=== PATIENT | female | born 1990 | race Caucasian/White ===

== ENCOUNTER 2019-02-27 07:51 | Inpatient (IN) | payer BC ==
[~2019-02-27 07:51] MED LIST: Buffered Lidocaine 1% SYRIN* 1 ML/SYRINGE INTRADERM ONE; Famotidine IV* 10 MG/ML 2 ML (20 mg) IV ONE
[2019-02-27] MEDS: Lactated Ringers 1000 ML Bag* 1,000 ML IV SCH ×2 (08:20→09:34)
[2019-02-27] MEDS ORDERED: fentaNYL* 50 MCG/ML 2 ML VIAL (100 MCG VIAL) ONE (08:25)
[2019-02-27] MEDS ORDERED: Morphine PF AMP (0.5MG/ML)* 5 MG/10 ML AMP ONE (08:25)
[2019-02-27] MEDS ORDERED: Midazolam* 1 MG/ML 5 ML VIAL (5 MG) ONE (08:25)
[2019-02-27] MEDS ORDERED: KETAMINE HCL* 50 MG/ML 10 ML VIAL ONE (08:25)
[2019-02-27] MEDS ORDERED: ceFOXitin 2 GM IVPREMIX* 2 GM/50 ML BAG ONE (09:40)
[2019-02-27] MEDS ORDERED: Carboprost Tromethamine* 250 MCG INJ ONE (10:39)
[2019-02-27] MEDS ORDERED: DiMENhydriNATE IV* 50 MG/ML VIAL IV PUSH PRN (11:00)
[2019-02-27] MEDS ORDERED: Scopolamine 1.5 mg* PATCH TRANSDERM PRN (11:00)
[2019-02-27] MEDS ORDERED: Naloxone* 2 MG in NS 0.9% 250 ML* 250 ML IV PRN (11:00)
[2019-02-27] MEDS ORDERED: PROCHLORPERAZINE INJ 5 MG/ML 2 ML VIAL IV PRN (11:00)
[2019-02-27] MEDS ORDERED: Ondansetron INJ* 2 MG/ML VIAL IV PRN (11:00)
[2019-02-27] MEDS ORDERED: Nalbuphine* 10 MG/ML 1 ML VIAL IV PRN (11:00)
[2019-02-27] MEDS ORDERED: Naloxone* 0.4 MG/ML 1 ML VIAL IV PRN ×2 (11:00→11:03)
[2019-02-27] MEDS ORDERED: fentaNYL* 50 MCG/ML 2 ML VIAL (100 MCG VIAL) IV PRN (11:03)
[2019-02-27] MEDS ORDERED: EPHEDrine (Pressors)* 50 MG/ML VIAL ONE (11:11)
[2019-02-27] MEDS ORDERED: Scopolamine 1.5 mg* PATCH ONE (11:11)
[2019-02-27] MEDS ORDERED: Ketorolac INJ* 30 MG/ML 1 ML VIAL ONE (11:11)
[2019-02-27] MEDS ORDERED: OXYTOCIN* 10 UNITS/ML 1 ML VIAL ONE (11:11)
[2019-02-27] MEDS ORDERED: Dexamethasone IV* 4 MG/ML 1 ML (4 MG) ONE (11:11)
[2019-02-27] MEDS ORDERED: Ondansetron INJ* 2 MG/ML VIAL ONE (11:11)
[2019-02-27] MEDS ORDERED: Witch Hazel PAD* JAR TOPICAL PRN (12:01)
[2019-02-27] MEDS ORDERED: Dibucaine 1% 28.35 GM TUBE PR PRN (12:01)
[2019-02-27] MEDS ORDERED: Glycerin ADULT SUPP PR PRN (12:01)
[2019-02-27] MEDS: Simethicone TAB* 80 MG TAB.CHEW PO SCH ×3 (12:30→20:16)
[2019-02-27] MEDS ORDERED: Oxytocin in LR* 20 UNITS/1,000 ML BAG IVPB SCH (13:00)
[2019-02-27] MEDS ORDERED: Lactated Ringers 1000 ML Bag* 1,000 ML IV SCH (13:00)
[2019-02-27] MEDS: Docusate CAP* 100 MG PO SCH ×2 (14:00→20:16)
[2019-02-27] MEDS: Ketorolac INJ* 30 MG/ML 1 ML VIAL IV PRN (18:01)
--- NOTE | 2019-02-27 22:20 | OP ---
DATE OF OPERATION: 02/27/19 - ROOM #114 DATE OF : 88 SURGEON: Ashley Velásquez MD FOOD QUALITY TESTER: Lai Mark MD ANESTHESIOLOGIST: Dr. Diehl. ANESTHESIA: Spinal. PRE-OP DIAGNOSIS: Intrauterine 37 and 4/7th weeks, placenta previa, primary section. POST-OP DIAGNOSIS: Intrauterine 37 and 4/7th weeks, placenta previa, primary section, delivered. OPERATIVE PROCEDURE: Primary low transverse section. ESTIMATED BLOOD LOSS: 600 cc. URINE OUTPUT: 300 cc of clear yellow urine. FLUIDS: 2800 cc of crystalloid. FINDINGS: Revealed a vertex male infant, Apgars 8 at 1 minute, 9 at 5 minutes, 6 pounds 7 ounces, no nuchal cord, no meconium. Normal-appearing tubes and ovaries. Uterine cavity without evidence of masses or synechiae. No evidence of retained placental tissue on membranes. Normal-appearing placenta. Three- vessel cord, manual. COMPLICATIONS: None apparent. DISPOSITION: Stable to recovery room. DESCRIPTION OF PROCEDURE: The patient was placed in dorsal lithotomy position. The abdomen was prepped and draped in a sterile standard fashion. Anesthesia was tested to appropriate level. The patient was identified with universal protocol. An incision was made 2 fingerbreadths above the pubic symphysis. This was carried down through the fascia. The fascia was scored in the midline , extended laterally and superiorly using Forrester scissors and fascia was sharply and bluntly superiorly and inferiorly using Forrester scissors. Peritoneum was then entered bluntly. Peritoneal incision was extended bluntly. Bladder blade was inserted. The lower uterine segment was identified. Tented up with an Allis. The incision was made down to the membranes. Clear fluid was noted. The incision was extended laterally and superiorly using bandage scissors. The was found to be LOT. Delivered. No nuchal cord, no meconium. Anterior posterior shoulder delivered. Cord was allowed to pulse. The cord was then clamped after 60 seconds and cut and infant was handed off to waiting grinder chipper. Appropriate cord bloods were obtained. The placenta was then manually extracted, noted to have 3-vessel cord intact. The uterus was exteriorized, wrapped in one moist laparotomy sponge. Tubes and ovaries were noted to have a normal appearance. Uterine cavity was normal without evidence of retained membranes or placental tissue. The uterine incision itself was reapproximated using 0 Vicryl x2 in a running locked and imbricated fashion. Uterus was returned intraabdominally. Colic gutters were lavaged. Hemostasis was assured at the hysterotomy site. The peritoneum was clamped with Kellys. The peritoneum was then reapproximated using 3-0 Vicryl in a running fashion. Subfascial area was visualized and noted to be hemostatic. Fascia itself was reapproximated using 0 Vicryl x2 in a running fashion. Subcuticular tissue was lavaged. Hemostasis was assured with Bovie coagulation and the skin was then reapproximated using 4-0 Monocryl in a subcuticular fashion. Mastisol and Steris were applied. All sponge, instrument, and blade counts were correct throughout the case. The patient tolerated the procedure well and went to recovery room in stable condition. [id number] #: [id number] PIA
[2019-02-28] MEDS: Ketorolac INJ* 30 MG/ML 1 ML VIAL IV PRN ×2 (00:15→06:23)
[2019-02-28] MEDS ORDERED: oxyCODONE/Acetamin 5/325 MG* TAB PO PRN ×2 (01:00)
[2019-02-28] MEDS: Acetaminophen TAB* 325 MG PO PRN ×2 (06:23→17:39)
[2019-02-28] MEDS: Simethicone TAB* 80 MG TAB.CHEW PO SCH ×4 (08:07→20:23)
[2019-02-28] MEDS: Docusate CAP* 100 MG PO SCH ×3 (08:07→20:23)
[2019-02-28 08:52] LABS: ABS Basophils 0.1 10^3/ul (0-0.2); ABS Eosinophils 0.1 10^3/ul (0-0.6); ABS Lymphocytes 2.5 10^3/ul (1.0-4.8); ABS Neutrophils 10.6 10^3/ul (1.5-7.7); ABS Nucleated RBC 0 10^3/ul; Eosinophil % 0.5 %; Hematocrit 33 % (33-41); Hemoglobin 11.2 g/dL (12.0-16.0); Lymphocyte % 17.7 %; Mean Corpuscular HGB Conc 34 g/dL (31-36); Mean Corpuscular Hemoglobin 30 pg (27-31); Mean Corpuscular Volume 89 fL (80-97); Mean Platelet Volume 7.6 fL (7.4-10.4); Nucleated Red Blood Cells % 0.1; Platelet Count 199 10^3/uL (150-450); Red Blood Count 3.75 10^6 /uL (3.70-4.87); Red Cell Distribution Width 13 % (10.5-15); White Blood Count 14.3 10^3/uL (3.5-10.8)
[2019-02-28] MEDS ORDERED: Ferrous Gluconate TAB* 324 MG TAB PO SCH (09:00)
[2019-02-28] MEDS: Ibuprofen TAB* 600 MG PO PRN ×2 (12:41→20:23)
[2019-03-01 08:44] VITALS: BP 101/74
[2019-03-01] MEDS: Docusate CAP* 100 MG PO SCH ×2 (08:44→14:09)
[2019-03-01] MEDS: Simethicone TAB* 80 MG TAB.CHEW PO SCH ×2 (08:45→12:53)
[2019-03-01] MEDS: oxyCODONE/Acetamin 5/325 MG* TAB PO PRN ×2 (08:45→12:53)
[2019-03-01] MEDS: Ibuprofen TAB* 600 MG PO PRN ×2 (08:45→14:09)
[2019-03-02] MEDS ORDERED: Scopolamine PATCH Remove* 1 NOTE MISC PATCH OFF PRN (11:01)
== END 2019-03-01 15:00 | disposition home or self-care (01) | DRG 540 ==
LOC: MCHOB 07:51
PROVIDERS: ADMIT Obstetrics & Gynecology; ATTEND Obstetrics & Gynecology
PROC: 4A1HXCZ Monitoring of Products of Conception, Cardiac Rate, External Approach (ICD-10-PCS; 2019-02-27)
PROC: 10D00Z1 Extraction of Products of Conception, Low, Open Approach (ICD-10-PCS; principal; 2019-02-27 09:45)
DX: O44.03 Complete placenta previa NOS or without hemorrhage, third trimester (principal); Z3A.37 37 weeks gestation of pregnancy; Z37.0 Single live birth; Z88.0 Allergy status to penicillin
CPT/HCPCS: 36415; 85025; A9270-GY; J0694; J1100; J1885; J2250; J2405; J2590; J3010

== ENCOUNTER 2023-01-24 05:28 | Inpatient (IN) ==
[2023-01-24] MEDS ORDERED: ceFAZolin 2 GM/50 ML BAG IV ONE (06:00)
[2023-01-24 06:16] LABS: ABS Eosinophils 0.1 10^3/ul (0-0.6); ABS Monocytes 0.9 10^3/ul (0-0.8); ABS Neutrophils 5.5 10^3/ul (1.5-7.7); Eosinophil % 1.4 %; Hematocrit 36 % (35-47); Hemoglobin 12.4 g/dL (12.0-16.0); Lymphocyte % 23.3 %; Mean Corpuscular HGB Conc 35 g/dL (31-36); Mean Corpuscular Hemoglobin 31 pg (27-31); Mean Corpuscular Volume 87 fL (80-97); Mean Platelet Volume 7.4 fL (7.4-10.4); Platelet Count 216 10^3/uL (150-450); Red Blood Count 4.07 10^6 /uL (3.70-4.87); Red Cell Distribution Width 13 % (10-15); White Blood Count 8.6 10^3/uL (3.5-10.8)
[2023-01-24] MEDS ORDERED: Lactated Ringers 1000 ml BAG 1,000 ML IV SCH ×2 (07:00→10:00)
[2023-01-24] MEDS ORDERED: Oxytocin 10 UNITS/ML 1 ML VIAL ONE (07:37)
[2023-01-24] MEDS ORDERED: Ondansetron 4 mg VIAL 2 MG/ML 2 ml VIAL ONE (07:37)
[2023-01-24] MEDS ORDERED: Morphine PF AMP (0.5MG/ML) 5 MG/10 ML AMP ONE (07:38)
[2023-01-24] MEDS ORDERED: Phenylephrine 40 mcg/mL 10mL (400mcg) SYRINGE ONE ×2 (07:38→09:16)
[2023-01-24] MEDS ORDERED: Metoclopramide 5 MG/ML VIAL (10 mg) IV PRN (08:47)
[2023-01-24] MEDS ORDERED: Naloxone 0.4 mg VIAL 0.4 mg/ml 1 ml VIAL IV PUSH PRN (08:47)
[2023-01-24] MEDS ORDERED: Acetaminophen IV 1 GM/100ML 1,000 MG/100 ML BAG IV PRN (08:47)
[2023-01-24] MEDS ORDERED: Ondansetron 4 mg VIAL 2 MG/ML 2 ml VIAL IV PRN (08:47)
[2023-01-24] MEDS ORDERED: Acetaminophen IV 1 GM/100ML 1,000 MG/100 ML BAG IV ONE (08:51)
[2023-01-24] MEDS ORDERED: Glycerin ADULT 2.4 gm SUPP PR PRN (09:45)
[2023-01-24] MEDS ORDERED: Witch Hazel PAD JAR TOPICAL PRN (09:45)
[2023-01-24] MEDS ORDERED: Dibucaine 1% OINT 28.35 GM TUBE PR PRN (09:45)
[2023-01-24 11:31] LABS: Urine Appearance Clear; Urine Bilirubin Negative (Negative); Urine Blood 1+ (Negative); Urine Color Straw; Urine Glucose Negative (Negative); Urine Ketones Negative (Negative); Urine Nitrite Negative (Negative); Urine Protein Negative (Negative); Urine Specific Gravity 1.011 (1.002-1.030); Urine Urobilinogen Negative (Negative)
[2023-01-24 11:37] LABS: Urine Bacteria Absent (Absent); Urine Red Blood Cell 1+(3-5/hpf) (Absent); Urine White Blood Cell Trace(0-5/hpf) (Absent)
[2023-01-25 06:37] LABS: ABS Eosinophils 0.1 10^3/ul (0-0.6); ABS Lymphocytes 1.4 10^3/ul (1.0-4.8); ABS Monocytes 0.7 10^3/ul (0-0.8); ABS Neutrophils 8.5 10^3/ul (1.5-7.7); Eosinophil % 0.5 %; Hematocrit 29 % (35-47); Hemoglobin 10.1 g/dL (12.0-16.0); Lymphocyte % 13.1 %; Mean Corpuscular HGB Conc 35 g/dL (31-36); Mean Corpuscular Hemoglobin 30 pg (27-31); Mean Corpuscular Volume 87 fL (80-97); Mean Platelet Volume 7.4 fL (7.4-10.4); Platelet Count 156 10^3/uL (150-450); Red Blood Count 3.37 10^6 /uL (3.70-4.87); Red Cell Distribution Width 14 % (10-15); White Blood Count 10.7 10^3/uL (3.5-10.8)
[2023-01-26 08:48] VITALS: BP 102/68
== END 2023-01-26 10:45 | disposition home or self-care (01) | DRG 540 ==
LOC: MCHOB 05:28
PROVIDERS: ADMIT Obstetrics & Gynecology; ATTEND Obstetrics & Gynecology